=== PATIENT | male | born 1955 | race Caucasian/White ===

== ENCOUNTER 2023-07-23 07:56 | Emergency (ER) | payer MEDICARE, OTHER ==
[2023-07-23 08:13] VITALS: RESP 18; TEMP 97.9
--- NOTE | 2023-07-23 08:37 | ED ---
General Adult HPI - General Chief complaint: Back Pain/Injury Stated complaint: back/side pain Time Seen by Provider: 07/23/23 08:20 Source: patient, RN notes reviewed, old records reviewed Limitations: no limitations - History of Present Illness Initial comments: Patient is a 67-year-old male who presents emergency department complaining of right flank pain. States it started last night. States it radiates from the right flank occasionally towards the back and right groin. States he has a hard time peeing and noticed some burning when peeing. Denies any nausea or vomiting. States he currently has no pain as he took Motrin prior to arrival. Has no significant past medical history other than hypertension. Presents for further evaluation. Denies any chest pain, shortness of breath, fevers, chills, cough. - Related Data Home Medications Medication Instructions Recorded Confirmed Ibuprofen [Motrin] 800 mg PO Q8H PRN 07/23/23 07/23/23 Losartan Potassium [Cozaar] 100 mg PO HS 07/23/23 07/23/23 Omeprazole [PriLOSEC] 20 mg PO BID 07/23/23 07/23/23 amLODIPine [Norvasc] 5 mg PO HS 07/23/23 07/23/23 Previous Rx's Medication Instructions Recorded Tamsulosin HCl [Flomax] 0.4 mg PO 14 #14 cap 07/23/23 Allergies Allergy/AdvReac Type Severity Reaction Status Date / Time Iodinated Contrast Media Allergy Anaphylaxis Verified 07/23/23 10:36 Review of Systems ROS Statement: Those systems with pertinent positive or pertinent negative responses have been documented in the HPI. Review of Systems: CONST: Denies fever EYES: Denies blurry vision ENT: Denies nasal congestion C/V: Denies Chest pain RESP: Denies shortness of breath GI: Endorses right flank pain : Denies dysuria SKIN: Denies rash. MSK: Denies joint pain. NEURO: Denies headache ROS Other: All systems not noted in ROS Statement are negative. Past Medical History Past Medical History: No Reported History Additional Past Medical History / Comment(s): RIGHT HAND NUMBNESS/CARPAL TUNNEL SYNDROME History of Any Multi-Drug Resistant Organisms: None Reported Past Surgical History: Hernia Repair Additional Past Surgical History / Comment(s): UMBILICAL HERNIA. SINUS. Past Anesthesia/Blood Transfusion Reactions: No Reported Reaction Past Psychological History: No Psychological Hx Reported Past Alcohol Use History: None Reported Past Drug Use History: None Reported - Past Family History Mother Family Medical History: No Reported History General Exam - General Exam Comments Initial Comments: General: Appears in no acute distress. HEAD: Normal with no signs of head trauma. EYES: PERRLA, EOMI, conjunctiva normal, no discharge. ENT: Hearing grossly intact, normal oropharynx. RESPIRATORY: Clear breath sounds bilaterally. No wheezes, rales, or rhonchi. C/V: Regular rate and rhythm. S1 and S2 auscultated, no edema, peripheral pulses 2+ and intact throughout ABD: Abd is soft, nontender, nondistended. Currently no tenderness, guarding, peritoneal signs. EXT: Normal range of motion, no obvious deformity SKIN: No rashes or lesions observed on exposed skin. NEURO: Alert and oriented x 4. Limitations: no limitations Course Vital Signs 07/23/23 07/23/23 07:57 11:05 Temperature 97.9 F Pulse Rate 67 68 Respiratory 18 18 Rate Blood Pressure 136/82 136/85 O2 Sat by Pulse 98 97 Oximetry Medical Decision Making - Medical Decision Making Was pt. sent in by a medical professional or institution (, PA, [employer]MS DEVELOPER, urgent care, hospital, or fdc...) When possible be specific @ -No Did you speak to anyone other than the patient for history (EMS, parent, family, police, friend...)? What history was obtained from this source @ -No Did you review nursing and triage notes (agree or disagree)? Why? @ -I reviewed and agree with nursing and triage notes Were old charts reviewed (outside hosp., previous admission, EMS record, old EKG, old radiological studies, urgent care reports/EKG's, fdc records)? Report findings @ -Old charts reviewed Differential Diagnosis (chest pain, altered mental status, abdominal pain women, abdominal pain men, vaginal bleeding, weakness, fever, dyspnea, syncope, headache, dizziness, GI bleed, back pain, seizure, CVA, palpatations, mental health, musculoskeletal)? @ -Differential Abdominal Pain Men: Appendicitis, cholecystitis, diverticulosis, ischemic bowel, pancreatitis, hepa titis, UTI, gastroenteritis, AAA, incarcerated hernia, bowel obstruction, constipation, inflammatory bowel, hepatitis, peptic ulcer disease, splenic infarction, perforated viscus, testicular torsion, this is not meant to be an all-inclusive list EKG interpreted by me (3pts min.). @ -None done X-rays interpreted by me (1pt min.). @ -None done CT interpreted by me (1pt min.). @ -CT abdomen pelvis reveals a kidney stone that is 3 mm in size and likely just passed into the bladder from the right ureter. Some prostamegaly as well as hepatomegaly as well. U/S interpreted by me (1pt. min.). @ -None done What testing was considered but not performed or refused? (CT, X-rays, U/S, labs)? Why? @ -None What meds were considered but not given or refused? Why? @ -I offered analgesia medications which were declined as patient states he is controlled pain at this time. Did you discuss the management of the patient with other professionals (professionals i.e. , PA, [employer] DEVELOPER, lab, RT, psych nurse, social service coordinator, shoe packer, teacher, chief information security officer, returned case inspector)? Give summary @ -No Was smoking cessation discussed for >3mins.? @ -No Was critical care preformed (if so, how long)? @ -No Were there social determinants of health that impacted care today? How? (Homelessness, low income, unemployed, alcoholism, drug addiction, transportation, low edu. Level, literacy, decrease access to med. care, residential, rehab)? @ -No Was there de-escalation of care discussed even if they declined (Discuss DNR or withdrawal of care, Hospice)? DNR status @ -No What co-morbidities impacted this encounter? (DM, HTN, Smoking, COPD, CAD, Cancer, CVA, ARF, Chemo, Hep., AIDS, mental health diagnosis, sleep apnea, m orbid obesity)? @ -None Was patient admitted / discharged? Hospital course, mention meds given and route, prescriptions, significant lab abnormalities, going to OR and other pertinent info. @ -Patient presents complaining of right flank pain. Started last night with some urinary symptoms as well. We will obtain laboratory studies, urinalysis, CT of the abdomen pelvis without contrast. He will be given IV fluids. I offered analgesia medications which were declined. Patient was in agreement this plan. States he feels like he is having problems urinating as well and we will obtain bladder scanning as a postvoid residual. Vital signs are within acceptable limits. CT does show a recently passed kidney stone on the right which is likely the source of his pain. No evidence of infected stone. On reevaluation, patient was updated. Pain remains absent. Has urinated fine. We discussed it looks like he is having a passing kidney stone at this time. Will be discharged home on Flomax, with a strainer as well as ODT Zofran and Tylenol 3 starter pack. Patient was in agreement this plan. I will provide the patient with a prescription for starter pack of ODT Zofran, Tylenol 3. Flomax.. I instructed the patient to follow up with their PCP in the next 1-3 days. I provided contact information for follow up with urology. I explained that the patient should return to the emergency department if they experience any worsening symptoms. Strict return precautions were discussed with the patient. The patient expressed understanding of these instructions. I answered all questions that the patient had. The patient was discharged home in good condition with their prescriptions and follow up information. Undiagnosed new problem with uncertain prognosis? @ -No Drug Therapy requiring intensive monitoring for toxicity (Heparin, Nitro, Insulin, Cardizem)? @ -No Were any procedures done? @ -No Diagnosis/symptom? @ -Ureterolithiasis Acute, or Chronic, or Acute on Chronic? @ -Acute Uncomplicated (without systemic symptoms) or Complicated (systemic symptoms)? @ -Complicated Side effects of treatment? @ -None Exacerbation, Progression, or Severe Exacerbation] @ -No Poses a threat to life or bodily function? @ -Unlikely - Lab Data Result diagrams: 07/23/23 08:39 07/23/23 08:39 Lab Results 07/23/23 07/23/23 07/23/23 Range/Units 08:39 08:39 08:39 WBC 8.7 (3.8-10.6) k/uL RBC 4.48 (4.30-5.90) m/uL Hgb 15.2 (13.0-17.5) gm/dL Hct 44.7 (39.0-53.0) % MCV 99.6 (80.0-100.0) fL MCH 33.9 (25.0-35.0) pg MCHC 34.0 (31.0-37.0) g/dL RDW 13.5 (11.5-15.5) % Plt Count 149 L (150-450) k/uL MPV 9.6 Neutrophils % 76 % Lymphocytes % 12 % Monocytes % 8 % Eosinophils % 1 % Basophils % 0 % Neutrophils # 6.6 (1.3-7.7) k/uL Lymphocytes # 1.1 (1.0-4.8) k/uL Monocytes # 0.7 (0-1.0) k/uL Eosinophils # 0.1 (0-0.7) k/uL Basophils # 0.0 (0-0.2) k/uL Sodium 138 (137-145) mmol/L Potassium 5.0 (3.5-5.1) mmol/L Chloride 105 (98-107) mmol/L Carbon Dioxide 25 (22-30) mmol/L Anion Gap 8 mmol/L BUN 23 H (9-20) mg/dL Creatinine 0.79 (0.66-1.25) mg/dL Est GFR (CKD-EPI)AfAm >90 (>60 ml/min/1.73 sqM) Est GFR (CKD-EPI)NonAf >90 (>60 ml/min/1.73 sqM) Glucose 115 H (74-99) mg/dL Plasma Lactic Acid Maury 1.5 (0.7-2.0) mmol/L Calcium 9.3 (8.4-10.2) mg/dL Total Bilirubin 1.1 (0.2-1.3) mg/dL AST 55 (17-59) U/L ALT 46 (4-49) U/L Alkaline Phosphatase 89 (38-126) U/L Total Protein 7.5 (6.3-8.2) g/dL Albumin 4.3 (3.5-5.0) g/dL Amylase 52 (30-110) U/L Lipase 92 (23-300) U/L Urine Color Urine Appearance (Clear) Urine pH (5.0-8.0) Ur Specific Tolley (1.001-1.035) Urine Protein (Negative) Urine Glucose (UA) (Negative) Urine Ketones (Negative) Urine Blood (Negative) Urine Nitrite (Negative) Urine Bilirubin (Negative) Urine Urobilinogen (<2.0) mg/dL Ur Leukocyte Esterase (Negative) Urine RBC (0-5) /hpf Urine WBC (0-5) /hpf Hyaline Casts (0-2) /lpf Urine Mucus (None) /hpf 07/23/23 Range/Units 09:36 WBC (3.8-10.6) k/uL RBC (4.30-5.90) m/uL Hgb (13.0-17.5) gm/dL Hct (39.0-53.0) % MCV (80.0-100.0) fL MCH (25.0-35.0) pg MCHC (31.0-37.0) g/dL RDW (11.5-15.5) % Plt Count (150-450) k/uL MPV Neutrophils % % Lymphocytes % % Monocytes % % Eosinophils % % Basophils % % Neutrophils # (1.3-7.7) k/uL Lymphocytes # (1.0-4.8) k/uL Monocytes # (0-1.0) k/uL Eosinophils # (0-0.7) k/uL Basophils # (0-0.2) k/uL Sodium (137-145) mmol/L Potassium (3.5-5.1) mmol/L Chloride (98-107) mmol/L Carbon Dioxide (22-30) mmol/L Anion Gap mmol/L BUN (9-20) mg/dL Creatinine (0.66-1.25) mg/dL Est GFR (CKD-EPI)AfAm (>60 ml/min/1.73 sqM) Est GFR (CKD-EPI)NonAf (>60 ml/min/1.73 sqM) Glucose (74-99) mg/dL Plasma Lactic Acid Maury (0.7-2.0) mmol/L Calcium (8.4-10.2) mg/dL Total Bilirubin (0.2-1.3) mg/dL AST (17-59) U/L ALT (4-49) U/L Alkaline Phosphatase (38-126) U/L Total Protein (6.3-8.2) g/dL Albumin (3.5-5.0) g/dL Amylase (30-110) U/L Lipase (23-300) U/L Urine Color Colorless Urine Appearance Clear (Clear) Urine pH 5.5 (5.0-8.0) Ur Specific Tolley 1.009 (1.001-1.035) Urine Protein Negative (Negative) Urine Glucose (UA) Negative (Negative) Urine Ketones Negative (Negative) Urine Blood Large H (Negative) Urine Nitrite Negative (Negative) Urine Bilirubin Negative (Negative) Urine Urobilinogen <2.0 (<2.0) mg/dL Ur Leukocyte Esterase Negative (Negative) Urine RBC 63 H (0-5) /hpf Urine WBC 3 (0-5) /hpf Hyaline Casts 4 H (0-2) /lpf Urine Mucus Rare H (None) /hpf Disposition Clinical Impression: Ureterolithiasis Disposition: HOME SELF-CARE Condition: Good Instructions (If sedation given, give patient instructions): Kidney Stones (ED) Prescriptions: Tamsulosin HCl [Flomax] 0.4 mg PO 14 #14 cap Is patient prescribed a controlled substance at d/c from ED?: No Referrals: Wyatt Quiroz MD [Primary Care Provider] - 1-2 days Miguel Cabrera MD [STAFF PHYSICIAN] - 1-2 days Time of Disposition: 10:45
[2023-07-23] MEDS: SODIUM CHLORIDE 0.9% 1,000 ML IV STA (08:42)
[2023-07-23 09:08] LABS: Basophils % (A) 0 %; Eosinophils # (A) 0.1 k/uL (0-0.7); Eosinophils % (A) 1 %; HCT 44.7 % (39.0-53.0); HGB 15.2 gm/dL (13.0-17.5); Lymphocytes # (A) 1.1 k/uL (1.0-4.8); Lymphocytes % (A) 12 %; MCH 33.9 pg (25.0-35.0); MCV 99.6 fL (80.0-100.0); Mean Platelet Volume 9.6; Monocytes # (A) 0.7 k/uL (0-1.0); Monocytes % (A) 8 %; Neutrophils # (A) 6.6 k/uL (1.3-7.7); Neutrophils % (A) 76 %; Platelet Count 149 k/uL (150-450); RBC 4.48 m/uL (4.30-5.90); RDW 13.5 % (11.5-15.5); WBC 8.7 k/uL (3.8-10.6)
[2023-07-23 09:25] LABS: ALT 46 U/L (4-49); Albumin 4.3 g/dL (3.5-5.0); Amylase 52 U/L (30-110); Anion Gap 8 mmol/L; Blood Urea Nitrogen 23 mg/dL (9-20); Carbon Dioxide 25 mmol/L (22-30); Chloride 105 mmol/L (98-107); Glucose 115 mg/dL (74-99); Lipase 92 U/L (23-300); Sodium 138 mmol/L (137-145); Total Bilirubin 1.1 mg/dL (0.2-1.3)
[2023-07-23 09:27] LABS: African American GFR (CKD) >90 (>60 ml/min/1.73 sqM); Non-African American GFR(CKD) >90 (>60 ml/min/1.73 sqM)
[2023-07-23 09:42] LABS: AST 55 U/L (17-59); Alkaline Phosphatase 89 U/L (38-126); Calcium 9.3 mg/dL (8.4-10.2); Total Protein 7.5 g/dL (6.3-8.2)
--- NOTE | 2023-07-23 10:11 | CT ---
EXAMINATION TYPE: CT abdomen pelvis wo con DATE OF EXAM: 07/23/2023 COMPARISON: None HISTORY: 67-year-old male Abdominal pain, right flank CT DLP: 1352.8 mGycm. Automated exposure control for dose reduction was used. TECHNIQUE: Contiguous axial scanning of the abdomen and pelvis without IV contrast. Coronal and sagit napoleon reconstructions performed. FINDINGS: LUNG BASES: Heart upper limits of normal in size without pericardial effusion. Some mild dependent at electasis in the posterior lung bases. No pleural effusion. LIVER/GB: Hepatomegaly at 21.7 cm with slightly heterogeneous appearance to the parenchyma on noncont rast exam. No abnormal gallbladder distention. PANCREAS: No significant abnormality is seen. SPLEEN: No significant abnormality is seen. ADRENALS: No significant abnormality is seen. KIDNEYS: Tiny 1.1 cm parapelvic cyst left kidney. There is mild right-sided hydronephrosis and mild r ight-sided hydroureter with a tiny 3 mm stone dependent within the bladder lumen. LYMPH NODES: No significant abnormality is seen. BOWEL: No dilated small bowel, free fluid, or free air. Mild stool burden. Normal appendix. No ananda lic inflammatory change. OTHER: No significant abnormality is seen. PELVIS: Prostate gland enlarged at 5.5 cm wide. Left-sided pelvic phleboliths. Bladder distended. No abnormal fluid collection in the pelvis or pelvic lymphadenopathy. BONES: Moderate to advanced multilevel spondylotic change the lumbar spine. Degenerative grade 1 spon dylolisthesis L1-L2, L2/L3, L3-L4, L4-L5. Posterior disc osteophyte complex at L2/L3 continuous to mo derate focal spinal canal stenosis. IMPRESSION: 1. Residual mild right-sided hydronephrosis. There is a punctate 3 mm stone dependent within the scott dder lumen, likely recently passed from the right ureter. 2. Hepatomegaly 21.7 cm with slightly heterogeneous appearance to the liver parenchyma. Correlate fo r underlying fatty infiltration or other nonspecific hepatocellular disease. 3. Prostatomegaly of 5.5 cm wide.
[2023-07-23 10:37] LABS: Appearance,Urine Clear (Clear); Bilirubin,Urine Negative (Negative); Blood,Urine Large (Negative); Color,Urine Colorless; Glucose,Urine (UA) Negative (Negative); Hyaline Casts,Urine 4 /lpf (0-2); Ketones,Urine Negative (Negative); Leukocyte Esterase,Urine Negative (Negative); Mucus,Urine Rare /hpf; Nitrite,Urine Negative (Negative); PH, Urine 5.5 (5.0-8.0); Protein,Urine Negative (Negative); RBC,Urine 63 /hpf (0-5); Specific Gravity,Urine 1.009 (1.001-1.035); Urobilinogen,Urine <2.0 mg/dL (<2.0); WBC,Urine 3 /hpf (0-5)
[2023-07-23] MEDS: TAMSULOSIN 0.4 MG CAP.ER.24H PO STA (10:56)
[2023-07-23] MEDS: ONDANSETRON 4 MG ODT STARTER PACK 2 TAB BTL PO STA (10:57)
[2023-07-23] MEDS: ACET/COD 300 MG/30 MG STARTER PACK 6 TAB BTL PO STA (10:57)
[2023-07-23 11:25] VITALS: BP 136/85; PULSE 68
== END 2023-07-23 11:05 | disposition home or self-care (01) ==
LOC: EC 07:56
DX: N13.2 Hydronephrosis with renal and ureteral calculous obstruction (principal); Z91.041 Radiographic dye allergy status
CPT/HCPCS: 36415; 80053; 82150; 83605; 83690; 85025; 81001; 74176; 99284; 96360; S0119